=== PATIENT | male | born 1990 | race Caucasian/White ===

== ENCOUNTER 2023-07-10 21:36 | Inpatient (IN) | payer MEDICAID, OTHER ==
[~2023-07-10] VITALS: Ht 188 cm; Wt 131.1 kg
[2023-07-10] MEDS ORDERED: NALOXONE NASAL SPRAY 4 MG SPRAY NS ONE (21:39)
[2023-07-10] MEDS: NALOXONE NASAL SPRAY 4 MG SPRAY NS ONE (21:40)
[2023-07-10] MEDS ORDERED: NALOXONE 2 MG/2 ML SYRINGE ONE (21:40)
[2023-07-10] MEDS: NALOXONE HCL 0.4 MG/ML AMPUL IM ONE (21:50)
[2023-07-10] MEDS ORDERED: PROPOFOL 100 ML ONE (22:03)
[2023-07-10] MEDS ORDERED: VECURONIUM BROMIDE 10 MG VIAL IV ONE (22:04)
[2023-07-10] MEDS: PROPOFOL 100 ML IV ONE (22:10)
[2023-07-10 22:33] LABS: BASOPHILS # (AUTO) 0.3 K/UL (0.0-0.2); BASOPHILS % (AUTO) 1.5 % (0.0-2.0); EOSINOPHILS # (AUTO) 0.6 K/uL (0.0-0.7); EOSINOPHILS % (AUTO) 3.7 % (0.0-7.0); HEMATOCRIT 46.2 % (36.7-47.1); HEMOGLOBIN 15.6 g/dL (12.5-16.3); LYMPHOCYTES # (AUTO) 2.1 K/uL (0.8-4.8); LYMPHOCYTES % (AUTO) 13.1 % (20.5-51.5); MEAN CORPUSCULAR HEMOGLOBIN 31.4 uug (23.8-33.4); MEAN CORPUSCULAR HGB CONC 34 g/dL (32.5-36.3); MEAN CORPUSCULAR VOLUME 93.3 fL (73.0-96.2); MONOCYTES # (AUTO) 0.3 K/uL (0.1-1.30); NEUTROPHILS # (AUTO) 12.9 K/uL (1.8-8.9); NEUTROPHILS % (AUTO) 79.7 % (38.5-71.5); PLATELET COUNT (AUTO) 341 K/uL (152-348); RED BLOOD CELL COUNT(AUTO) 4.96 MIL/uL (4.06-5.63); RED CELL DISTRIBUTION WIDTH 13.8 % (12.1-16.2); WHITE BLOOD COUNT (AUTO) 16.2 K/uL (3.6-10.2)
[2023-07-10 22:34] LABS: DIFFERENTIAL COMMENT 1
[2023-07-10 22:37] LABS: CALCIUM 8.4 mg/dL (8.5-10.1); CARBON DIOXIDE 23 mmol/L (21-32); CHLORIDE 105 mmol/L (98-107); CREATININE 1.1 mg/dL (0.6-1.3); GLUCOSE 238 mg/dL (74-106); POTASSIUM 4.7 mmol/L (3.5-5.1); SODIUM SERUM 142 mmol/L (136-145); UREA NITROGEN, BLOOD 18 mg/dL (7-18)
[2023-07-10 22:43] LABS: ACETAMINOPHEN < 2.0 ug/mL (10-30)
[2023-07-10 22:45] LABS: ETHANOL 170 MG/DL (0-10)
[2023-07-10 22:50] LABS: ALANINE AMINOTRANSFERASE 52 U/L (16-63); ALBUMIN 4.2 g/dL (3.4-5.0); ALKALINE PHOSPHATASE 137 U/L (50-136); ASPARTATE AMINOTRANSFERASE 25 U/L (15-37); BILIRUBIN,DIRECT 0.1 mg/dL (0.0-0.2); BILIRUBIN,TOTAL 0.4 mg/dL (0.2-1.0); NT-PRO BNP 19 pg/mL (0-125); TOTAL PROTEIN, SERUM 8.4 g/dL (6.4-8.2)
[2023-07-10] MEDS: IV NORMAL SALINE 1000 ML BAG IV ONE (23:02)
[2023-07-10 23:16] LABS: *BILIRUBIN,URIN NEGATIVE (NEGATIVE); *BLOOD, URINE NEGATIVE (NEGATIVE); *CLARITY,URINE CLEAR (CLEAR); *COLOR,URINE YELLOW (YELLOW); *KETONES,URINE NEGATIVE (NEGATIVE); *PROTEIN,URINE TRACE (NEGATIVE); *UROBILINOGEN,URINE 0.2 E.U./dl (NORMAL); LEUKOCYTE ESTERASE ,URINE NEGATIVE (NEGATIVE); NITRITE, URINE NEGATIVE (NEGATIVE); UGLUCOSE NEGATIVE (NEGATIVE)
[2023-07-10 23:16] LABS: ABG HCO3 18.5 mmol/L (22.0-26.0); ABG PCO2 45.6 mmHg (35.0-48.0); ABG PH 7.226 (7.340-7.440); ABG PO2 229.3 mmHg (75.0-100.0); ABG SITE LEFT FEMORAL; AaDO2 99.3 mmHg; COHb 1.5 % (0.0-3.9); MetHb 0.4 % (0.0-1.5); O2Hb 97.5 % (94.0-97.0); VT, ABG 550 mL
[2023-07-10 23:23] LABS: *AMPHETAMINE, URINE NEGATIVE (NEGATIVE); *BARBITURATE, URINE NEGATIVE (NEGATIVE); *BENZODIAZEPINE, URINE NEGATIVE (NEGATIVE); *CANNABINOID, URINE NEGATIVE (NEGATIVE); *COCCAINE, URINE NEGATIVE (NEGATIVE); *OPIATE, URINE NEGATIVE (NEGATIVE); *PHENCYCLIDINE SCREEN,URINE NEGATIVE (NEGATIVE); FENTANYL, URINE POSITIVE (NEGATIVE)
[2023-07-10 23:28] LABS: RBC,URINE 0-3 /HPF (0-3); WBC,URINE NONE SEEN /HPF (0-3)
[2023-07-10 23:29] LABS: BACTERIA,URINE FEW /HPF (NONE SEEN); SQUAMOUS EPITHELIAL CELL,UR FEW /HPF (NONE SEEN)
[2023-07-11] VITALS (19 sets, daily range): BP systolic 84–131; BP diastolic 52–79; TEMP 97.2–100; O2SAT 98–100
[2023-07-11] MEDS ORDERED: PIPERACILLIN/TAZOBACTAM/D5W 50 ML IV ONE (00:06)
[2023-07-11] MEDS: PIPERACILLIN SODIUM/TAZOBACTAM 3.375 G in IV DEXTROSE 5% 50 ML IV ONE (00:10)
[2023-07-11] MEDS ORDERED: ONDANSETRON 4 MG/2 ML VIAL ONE (00:11)
[2023-07-11] MEDS: ONDANSETRON 4 MG/2 ML VIAL IV ONE (00:13)
[2023-07-11] MEDS ORDERED: PROPOFOL 100 ML ONE ×2 (01:30→04:27)
[2023-07-11] MEDS: VECURONIUM BROMIDE 10 MG VIAL IV ONE (02:20)
[2023-07-11] MEDS ORDERED: hydrALAZINE HCL 20 MG/1 ML VIAL IV PRN (03:15)
[2023-07-11] MEDS ORDERED: MORPHINE SULFATE 2 MG/1 ML DISP.SYRIN IVP PRN (03:15)
[2023-07-11] MEDS ORDERED: ONDANSETRON 4 MG/2 ML VIAL IV PRN (03:15)
[2023-07-11] MEDS ORDERED: ALBUTEROL SULFATE 2.5 MG/3 ML NEBU NEB PRN (05:30)
[2023-07-11] MEDS ORDERED: MIDAZOLAM HCL 5 MG/ML VIAL ONE (06:26)
[2023-07-11] MEDS: PROPOFOL 100 ML IV PRN ×2 (07:38→10:56)
[2023-07-11] MEDS: MIDAZOLAM HCL 50 MG in IV NORMAL SALINE 40 ML IV PRN (07:40)
[2023-07-11] MEDS: CEFEPIME HCL 2 GM in IV DEXTROSE 5% 100 ML IV ONE (07:41)
[2023-07-11] MEDS: PANTOPRAZOLE SODIUM 40 MG VIAL IV SCH (08:48)
[2023-07-11] MEDS: ENOXAPARIN SODIUM 40 MG/0.4 ML DISP.SYRIN SQ SCH (08:48)
[2023-07-11] MEDS ORDERED: HEPARIN SODIUM,PORCINE 5,000 UNITS/ML VIAL SQ SCH (09:00)
[2023-07-11] MEDS: FLUTICASONE/VILANTEROL 1 EACH BLST.W.DEV INH SCH (09:00)
[2023-07-11] MEDS: IV D5 1/2 NS 1000 ML 1,000 ML IV SCH (10:52)
[2023-07-11 11:04] LABS: THYROID STIMULATING HORMONE 0.973 mIU/mL (0.358-3.740)
[2023-07-11] MEDS: IV D5 1/2 NS 1000 ML 1,000 ML IV PRN (14:48)
[2023-07-11] MEDS ORDERED: CEFEPIME HCL 1 G in IV DEXTROSE 5% 50 ML IV SCH (16:00)
[2023-07-11] MEDS: CEFEPIME HCL 2 GM in IV DEXTROSE 5% 100 ML IV SCH (20:02)
[2023-07-12] VITALS (43 sets, daily range): BP systolic 85–136; BP diastolic 50–98; TEMP 97.6–100.1; O2SAT 94–100
[2023-07-12 05:08] LABS: BASOPHILS % (AUTO) 0.4 % (0.0-2.0); EOSINOPHILS # (AUTO) 0.3 K/uL (0.0-0.7); EOSINOPHILS % (AUTO) 3.4 % (0.0-7.0); HEMATOCRIT 34.4 % (36.7-47.1); HEMOGLOBIN 11.7 g/dL (12.5-16.3); MEAN CORPUSCULAR HEMOGLOBIN 31.2 uug (23.8-33.4); MEAN CORPUSCULAR HGB CONC 34 g/dL (32.5-36.3); MEAN CORPUSCULAR VOLUME 91.8 fL (73.0-96.2); MONOCYTES % (AUTO) 10.2 % (0.0-11.0); NEUTROPHILS # (AUTO) 6.1 K/uL (1.8-8.9); PLATELET COUNT (AUTO) 191 K/uL (152-348); RED BLOOD CELL COUNT(AUTO) 3.75 MIL/uL (4.06-5.63); RED CELL DISTRIBUTION WIDTH 13.6 % (12.1-16.2); WHITE BLOOD COUNT (AUTO) 9.4 K/uL (3.6-10.2)
[2023-07-12 05:13] LABS: DIFFERENTIAL COMMENT 1
[2023-07-12 05:23] LABS: ALBUMIN 2.9 g/dL (3.4-5.0); BILIRUBIN,TOTAL 0.8 mg/dL (0.2-1.0); CALCIUM 7.9 mg/dL (8.5-10.1); CREATININE 0.8 mg/dL (0.6-1.3); MAGNESIUM 1.9 mg/dL (1.8-2.4); PHOSPHOROUS 2.8 mg/dL (2.5-4.9); POTASSIUM 3.3 mmol/L (3.5-5.1); TOTAL PROTEIN, SERUM 6.1 g/dL (6.4-8.2)
[2023-07-12 07:50] LABS: ABG BASE EXCESS -1.9 mmol/L (-2.0-2.0); ABG HCO3 22.6 mmol/L (22.0-26.0); ABG PCO2 37.7 mmHg (35.0-48.0); ABG PH 7.396 (7.340-7.440); ABG PO2 73.6 mmHg (75.0-100.0); ABG SITE LEFT RADIAL; ABG TOTAL HEMOGLOBIN 13.1 G/dL (14.0-18.0); AaDO2 94.8 mmHg; COHb 0.2 % (0.0-3.9); MetHb 0.2 % (0.0-1.5); O2Hb 94.1 % (94.0-97.0)
[2023-07-12] MEDS: POTASSIUM CHLORIDE 50 ML IV SCH (09:55)
[2023-07-12] MEDS: FOLIC ACID 1 MG TABLET PO SCH (12:13)
[2023-07-12] MEDS: THIAMINE HCL 100 MG TABLET PO SCH (12:13)
[2023-07-12] MEDS ORDERED: PROP10TA10 PO (12:21)
[2023-07-12] MEDS ORDERED: ESCI20TA44 PO (12:21)
[2023-07-12] MEDS ORDERED: HYDR50TA62 PO (12:21)
[2023-07-12] MEDS ORDERED: OLAN10TA73 PO (12:21)
[2023-07-12] MEDS ORDERED: GABA300C PO (12:21)
[2023-07-12] MEDS ORDERED: HALOPERIDOL DECANOATE 50 MG/1 ML AMPUL IM PRN (17:15)
[2023-07-12] MEDS ORDERED: FENTANYL CITRATE/PF 1,000 MCG in IV NORMAL SALINE 80 ML IV PRN (17:30)
[2023-07-12] MEDS: VANCOMYCIN IV 2,000 MG in IV DEXTROSE 5% 500 ML IV SCH (17:56)
[2023-07-12] MEDS: ACETAMINOPHEN 325 MG TABLET PO PRN (18:24)
[2023-07-12] MEDS: HALOPERIDOL LACTATE 5 MG/1 ML VIAL IM PRN (19:30)
[2023-07-13] VITALS (48 sets, daily range): BP systolic 90–131; BP diastolic 55–78; TEMP 97.4–100.3; O2SAT 94–100
[2023-07-13 04:58] LABS: BASOPHILS % (AUTO) 0.5 % (0.0-2.0); EOSINOPHILS # (AUTO) 0.4 K/uL (0.0-0.7); EOSINOPHILS % (AUTO) 5.4 % (0.0-7.0); HEMATOCRIT 32.8 % (36.7-47.1); HEMOGLOBIN 11.4 g/dL (12.5-16.3); LYMPHOCYTES # (AUTO) 1.6 K/uL (0.8-4.8); LYMPHOCYTES % (AUTO) 24.2 % (20.5-51.5); MEAN CORPUSCULAR HEMOGLOBIN 31.6 uug (23.8-33.4); MEAN CORPUSCULAR HGB CONC 35 g/dL (32.5-36.3); MEAN CORPUSCULAR VOLUME 91.1 fL (73.0-96.2); MONOCYTES # (AUTO) 0.6 K/uL (0.1-1.30); MONOCYTES % (AUTO) 9.6 % (0.0-11.0); NEUTROPHILS # (AUTO) 3.9 K/uL (1.8-8.9); NEUTROPHILS % (AUTO) 60.3 % (38.5-71.5); PLATELET COUNT (AUTO) 170 K/uL (152-348); RED CELL DISTRIBUTION WIDTH 13.3 % (12.1-16.2); WHITE BLOOD COUNT (AUTO) 6.5 K/uL (3.6-10.2)
[2023-07-13 05:17] LABS: DIFFERENTIAL COMMENT 1
[2023-07-13 05:22] LABS: CALCIUM 7.8 mg/dL (8.5-10.1); CREATININE 0.8 mg/dL (0.6-1.3); PHOSPHOROUS 3.6 mg/dL (2.5-4.9)
[2023-07-13 06:29] LABS: ABG BASE EXCESS -2.5 mmol/L (-2.0-2.0); ABG HCO3 20.5 mmol/L (22.0-26.0); ABG PCO2 29.9 mmHg (35.0-48.0); ABG PH 7.454 (7.340-7.440); ABG PO2 54.9 mmHg (75.0-100.0); ABG SITE RIGHT RADIAL; ABG TOTAL HEMOGLOBIN 11.9 G/dL (14.0-18.0); AaDO2 90.5 mmHg; COHb 0.1 % (0.0-3.9); MetHb 0.2 % (0.0-1.5); O2Hb 88.8 % (94.0-97.0); VT, ABG 550 mL
[2023-07-13] MEDS: POTASSIUM CHLORIDE 50 ML IV SCH (08:52)
[2023-07-14] VITALS (33 sets, daily range): BP systolic 97–145; BP diastolic 56–89; TEMP 97.7–99.6; O2SAT 93–99
[2023-07-14 04:50] LABS: BASOPHILS % (AUTO) 0.6 % (0.0-2.0); EOSINOPHILS # (AUTO) 0.4 K/uL (0.0-0.7); EOSINOPHILS % (AUTO) 7.9 % (0.0-7.0); HEMATOCRIT 34.4 % (36.7-47.1); HEMOGLOBIN 12.1 g/dL (12.5-16.3); LYMPHOCYTES # (AUTO) 1.1 K/uL (0.8-4.8); MEAN CORPUSCULAR HEMOGLOBIN 32.1 uug (23.8-33.4); MEAN CORPUSCULAR HGB CONC 35 g/dL (32.5-36.3); MEAN CORPUSCULAR VOLUME 91.6 fL (73.0-96.2); MONOCYTES # (AUTO) 0.5 K/uL (0.1-1.30); MONOCYTES % (AUTO) 8.5 % (0.0-11.0); NEUTROPHILS # (AUTO) 3.4 K/uL (1.8-8.9); PLATELET COUNT (AUTO) 187 K/uL (152-348); RED BLOOD CELL COUNT(AUTO) 3.76 MIL/uL (4.06-5.63); RED CELL DISTRIBUTION WIDTH 13.4 % (12.1-16.2); WHITE BLOOD COUNT (AUTO) 5.4 K/uL (3.6-10.2)
[2023-07-14 06:01] LABS: DIFFERENTIAL COMMENT 1
[2023-07-14 06:10] LABS: CALCIUM 7.9 mg/dL (8.5-10.1); CREATININE 0.7 mg/dL (0.6-1.3); PHOSPHOROUS 4.5 mg/dL (2.5-4.9); POTASSIUM 3.4 mmol/L (3.5-5.1)
[2023-07-14 06:36] LABS: ABG HCO3 20.4 mmol/L (22.0-26.0); ABG PH 7.423 (7.340-7.440); ABG PO2 57.2 mmHg (75.0-100.0); ABG SITE LEFT RADIAL; ABG TOTAL HEMOGLOBIN 14.1 G/dL (14.0-18.0); AaDO2 90.7 mmHg; COHb 0.2 % (0.0-3.9); CPAP,BG 8 cmH20; MetHb 0.3 % (0.0-1.5); O2Hb 89.1 % (94.0-97.0)
[2023-07-14] MEDS: POTASSIUM CHLORIDE 50 ML IV SCH (08:14)
[2023-07-14] MEDS ORDERED: PRECEDEX 400 MCG/100 ML BOTTLE 100 ML IV PRN (09:00)
[2023-07-14] MEDS: PRECEDEX 400 MCG/100 ML BOTTLE 100 ML IV PRN (09:42)
[2023-07-14] MEDS ORDERED: VITAL AF 1.2 1,000 ML LIQUID GT PRN (11:30)
[2023-07-14] MEDS: VANCOMYCIN IV 2,000 MG in IV DEXTROSE 5% 500 ML IV SCH (21:00)
[2023-07-14] MEDS ORDERED: ONDANSETRON HCL 4 MG/5 ML UDC ORAL SOL GT PRN (22:30)
[2023-07-14] MEDS: ONDANSETRON 4 MG/2 ML VIAL IV PRN (23:38)
[2023-07-15] VITALS (67 sets, daily range): BP systolic 79–176; BP diastolic 43–95; TEMP 97.8–100; O2SAT 91–100
[2023-07-15 04:48] LABS: BASOPHILS % (AUTO) 0.5 % (0.0-2.0); EOSINOPHILS # (AUTO) 0.4 K/uL (0.0-0.7); EOSINOPHILS % (AUTO) 4.5 % (0.0-7.0); HEMATOCRIT 39.7 % (36.7-47.1); HEMOGLOBIN 13.8 g/dL (12.5-16.3); LYMPHOCYTES # (AUTO) 1.1 K/uL (0.8-4.8); LYMPHOCYTES % (AUTO) 11.6 % (20.5-51.5); MEAN CORPUSCULAR HEMOGLOBIN 31.3 uug (23.8-33.4); MEAN CORPUSCULAR HGB CONC 35 g/dL (32.5-36.3); MEAN CORPUSCULAR VOLUME 90.3 fL (73.0-96.2); MONOCYTES # (AUTO) 0.9 K/uL (0.1-1.30); MONOCYTES % (AUTO) 9.7 % (0.0-11.0); NEUTROPHILS # (AUTO) 7.2 K/uL (1.8-8.9); NEUTROPHILS % (AUTO) 73.7 % (38.5-71.5); PLATELET COUNT (AUTO) 228 K/uL (152-348); RED CELL DISTRIBUTION WIDTH 13.3 % (12.1-16.2); WHITE BLOOD COUNT (AUTO) 9.7 K/uL (3.6-10.2)
[2023-07-15 04:49] LABS: DIFFERENTIAL COMMENT 1
[2023-07-15 04:52] LABS: CALCIUM 8.3 mg/dL (8.5-10.1); CREATININE 0.7 mg/dL (0.6-1.3); POTASSIUM 3.9 mmol/L (3.5-5.1)
[2023-07-15] MEDS: FENTANYL CITRATE/PF 1,000 MCG in IV NORMAL SALINE 80 ML IV PRN (10:17)
[2023-07-15] MEDS: NOREPINEPHRINE BITARTRATE 32 MG in IV NORMAL SALINE 218 ML IV PRN (12:48)
[2023-07-15] MEDS: CEFEPIME HCL 2 GM in IV DEXTROSE 5% 100 ML IV SCH (14:34)
[2023-07-16] VITALS (39 sets, daily range): BP systolic 82–152; BP diastolic 40–90; TEMP 97.5–100.3; O2SAT 89–100
[2023-07-16 05:48] LABS: ABG HCO3 22.3 mmol/L (22.0-26.0); ABG PCO2 32.8 mmHg (35.0-48.0); ABG PO2 79.6 mmHg (75.0-100.0); ABG SITE LEFT BRACHIAL; AaDO2 96.4 mmHg; COHb 0.3 % (0.0-3.9); MetHb 0.3 % (0.0-1.5); O2Hb 95.4 % (94.0-97.0); VT, ABG 550 mL
[2023-07-16 07:04] LABS: BASOPHILS # (AUTO) 0.1 K/UL (0.0-0.2); BASOPHILS % (AUTO) 0.8 % (0.0-2.0); EOSINOPHILS # (AUTO) 0.4 K/uL (0.0-0.7); EOSINOPHILS % (AUTO) 5.3 % (0.0-7.0); HEMOGLOBIN 12.5 g/dL (12.5-16.3); LYMPHOCYTES # (AUTO) 1.5 K/uL (0.8-4.8); LYMPHOCYTES % (AUTO) 18.7 % (20.5-51.5); MEAN CORPUSCULAR HEMOGLOBIN 31.4 uug (23.8-33.4); MEAN CORPUSCULAR HGB CONC 35 g/dL (32.5-36.3); MEAN CORPUSCULAR VOLUME 90.2 fL (73.0-96.2); MONOCYTES # (AUTO) 0.9 K/uL (0.1-1.30); MONOCYTES % (AUTO) 11.8 % (0.0-11.0); NEUTROPHILS % (AUTO) 63.4 % (38.5-71.5); PLATELET COUNT (AUTO) 228 K/uL (152-348); RED BLOOD CELL COUNT(AUTO) 3.99 MIL/uL (4.06-5.63); RED CELL DISTRIBUTION WIDTH 13.2 % (12.1-16.2); WHITE BLOOD COUNT (AUTO) 7.9 K/uL (3.6-10.2)
[2023-07-16 07:09] LABS: DIFFERENTIAL COMMENT 1
[2023-07-16 07:17] LABS: CALCIUM 7.9 mg/dL (8.5-10.1); CARBON DIOXIDE 24 mmol/L (21-32); CHLORIDE 109 mmol/L (98-107); CREATININE 0.6 mg/dL (0.6-1.3); GLUCOSE 125 mg/dL (74-106); POTASSIUM 3.4 mmol/L (3.5-5.1); SODIUM SERUM 141 mmol/L (136-145); UREA NITROGEN, BLOOD 6 mg/dL (7-18)
[2023-07-16 07:33] LABS: VANCOMYCIN,TROUGH 11.9 ug/mL (10.0-20.0)
[2023-07-16] MEDS: VANCOMYCIN IV 2,000 MG in IV DEXTROSE 5% 500 ML IV SCH (08:03)
[2023-07-16] MEDS: POTASSIUM CHLORIDE 50 ML IV SCH (09:41)
[2023-07-16 11:40] LABS: ABG HCO3 21.7 mmol/L (22.0-26.0); ABG PCO2 37.7 mmHg (35.0-48.0); ABG PH 7.378 (7.340-7.440); ABG TOTAL HEMOGLOBIN 14.2 G/dL (14.0-18.0); AaDO2 94.1 mmHg; COHb 0.4 % (0.0-3.9); CPAP,BG 5 cmH20; MetHb 0.3 % (0.0-1.5); O2Hb 93.1 % (94.0-97.0)
[2023-07-16] MEDS: MELATONIN 3 MG TABLET PO SCH (23:08)
[2023-07-17] VITALS (14 sets, daily range): BP systolic 110–140; BP diastolic 67–93; TEMP 97.3–98.5; O2SAT 90–98
[2023-07-17 05:24] LABS: BASOPHILS % (AUTO) 0.4 % (0.0-2.0); EOSINOPHILS # (AUTO) 0.3 K/uL (0.0-0.7); EOSINOPHILS % (AUTO) 3.7 % (0.0-7.0); HEMATOCRIT 39.1 % (36.7-47.1); HEMOGLOBIN 13.5 g/dL (12.5-16.3); LYMPHOCYTES # (AUTO) 1.3 K/uL (0.8-4.8); LYMPHOCYTES % (AUTO) 14.7 % (20.5-51.5); MEAN CORPUSCULAR HEMOGLOBIN 31.2 uug (23.8-33.4); MEAN CORPUSCULAR HGB CONC 35 g/dL (32.5-36.3); MEAN CORPUSCULAR VOLUME 90.3 fL (73.0-96.2); MONOCYTES # (AUTO) 0.9 K/uL (0.1-1.30); MONOCYTES % (AUTO) 10.2 % (0.0-11.0); NEUTROPHILS # (AUTO) 6.5 K/uL (1.8-8.9); PLATELET COUNT (AUTO) 247 K/uL (152-348); RED BLOOD CELL COUNT(AUTO) 4.33 MIL/uL (4.06-5.63); RED CELL DISTRIBUTION WIDTH 13.1 % (12.1-16.2); WHITE BLOOD COUNT (AUTO) 9.2 K/uL (3.6-10.2)
[2023-07-17 05:38] LABS: DIFFERENTIAL COMMENT 1
[2023-07-17 05:39] LABS: CALCIUM 8.5 mg/dL (8.5-10.1); CREATININE 0.7 mg/dL (0.6-1.3); POTASSIUM 3.6 mmol/L (3.5-5.1)
[2023-07-17] MEDS ORDERED: hydrOXYzine HCL 25 MG TABLET PO PRN (13:15)
[2023-07-17] MEDS: ESCITALOPRAM OXALATE 10 MG TABLET PO SCH (13:28)
[2023-07-17] MEDS: hydrOXYzine HCL 25 MG TABLET PO PRN (14:36)
[2023-07-17] MEDS: AMPICILLIN 2 G in NS 100 ML IV SCH (17:51)
[2023-07-18] VITALS (8 sets, daily range): BP systolic 124–137; BP diastolic 72–82; TEMP 97–98.8; O2SAT 95–99
[2023-07-18] MEDS: PANTOPRAZOLE SODIUM 40 MG TABLET.DR PO SCH (06:13)
[2023-07-18] MEDS ORDERED: GABAPENTIN 300 MG CAPSULE PO PRN (13:15)
[2023-07-18] MEDS ORDERED: PROPRANOLOL HCL 10 MG TABLET PO PRN (13:15)
[2023-07-18] MEDS: OLANZAPINE 5 MG TABLET PO SCH (15:36)
[2023-07-19 00:05] VITALS: BP 111/60; TEMP 97.8; O2SAT 95
[2023-07-19 04:00] VITALS: BP 115/74; TEMP 97.8; O2SAT 96
[2023-07-19 07:44] VITALS: BP 124/82; TEMP 98; O2SAT 99
[2023-07-19 10:51] VITALS: BP 129/82; TEMP 98.1; O2SAT 95
[2023-07-19] MEDS ORDERED: THIA100T88 PO (11:53)
[2023-07-19] MEDS ORDERED: AMPI500C11 PO (11:53)
[2023-07-19] MEDS ORDERED: FOLI1TAB94 PO (11:53)
[2023-07-19] MEDS ORDERED: PROP10TA10 PO (12:24)
[2023-07-19] MEDS ORDERED: OLAN10TA73 PO (12:24)
[2023-07-19] MEDS ORDERED: ESCI20TA PO (12:24)
[2023-07-19] MEDS ORDERED: GABA300C PO (12:24)
[2023-07-19] MEDS ORDERED: HYDR50TA62 PO (12:24)
== END 2023-07-19 13:45 | disposition home or self-care (01) | DRG 812 ==
LOC: ER 21:38 → CCU 07-11 03:11 → TELE3 07-17 18:55
PROVIDERS: ADMIT Internal Medicine; ATTEND Nurse Practitioner Acute Care
PROC: 0BH17EZ Insertion of Endotracheal Airway into Trachea, Via Natural or Artificial Opening (ICD-10-PCS; principal; 2023-07-11)
PROC: 06HY33Z Insertion of Infusion Device into Lower Vein, Percutaneous Approach (ICD-10-PCS; 2023-07-11)
PROC: 5A1955Z Respiratory Ventilation, Greater than 96 Consecutive Hours (ICD-10-PCS; 2023-07-11)
DX: T40.411A Poisoning by fentanyl or fentanyl analogs, accidental (unintentional), initial encounter (principal); R40.2A Nontraumatic coma due to underlying condition; J69.0 Pneumonitis due to inhalation of food and vomit; G92.8 Other toxic encephalopathy; A41.9 Sepsis, unspecified organism; J96.00 Acute respiratory failure, unspecified whether with hypoxia or hypercapnia; J96.01 Acute respiratory failure with hypoxia; T51.0X1A Toxic effect of ethanol, accidental (unintentional), initial encounter; Y92.410 Unspecified street and highway as the place of occurrence of the external cause; E66.01 Morbid (severe) obesity due to excess calories; Z68.37 Body mass index [BMI] 37.0-37.9, adult; Y90.6 Blood alcohol level of 120-199 mg/100 ml; E87.20 Acidosis, unspecified; F17.210 Nicotine dependence, cigarettes, uncomplicated; F10.229 Alcohol dependence with intoxication, unspecified; R13.10 Dysphagia, unspecified; J98.11 Atelectasis; F11.23 Opioid dependence with withdrawal; R44.3 Hallucinations, unspecified; R73.9 Hyperglycemia, unspecified
CPT/HCPCS: 36415; 36600; 70450; 71045; 82803; 83605; 83735; 84100; 84443; 84478; 84484; 85025; 85730; 87040; 87077; 93005; 94002; 94003; 94640; 94760; 99082-TC; A4606; A4663; C9113; G0378; G0480; J0290; J0692; J1630; J1650; J2250; J2310; J2405; J2543; J3010; J3370; J3480; J3490; J7040; J7060